=== PATIENT | female | born 1955 | race Caucasian/White ===

== ENCOUNTER → 2020-07-29 | Outpatient (CLI) | payer MEDICARE | LOC: MAMO 06-25 14:30 → MRI 09:43 → MAMO 11:30 | DX: M51.36 Other intervertebral disc degeneration, lumbar region (principal); M51.27 Other intervertebral disc displacement, lumbosacral region; M48.07 Spinal stenosis, lumbosacral region; M51.26 Other intervertebral disc displacement, lumbar region; M48.061 Spinal stenosis, lumbar region without neurogenic claudication; D18.09 Hemangioma of other sites; M43.16 Spondylolisthesis, lumbar region | CPT/HCPCS: 72148 ==

== ENCOUNTER → 2020-09-21 | Outpatient (CLI) | payer MEDICARE | LOC: MAMO 07-29 11:30 | DX: Z12.31 Encounter for screening mammogram for malignant neoplasm of breast (principal) | CPT/HCPCS: 77063; 77067 ==

== ENCOUNTER → 2020-11-26 | Outpatient (CLI) | payer MEDICARE ==
[~2020-11-26] MED LIST: KLOR-CON M1010 MEQ PO
[2020-11-26 15:14] LABS: RED BLOOD COUNT 4.01 M/UL (4.00-5.10); WHITE BLOOD COUNT 5.8 K/UL (4.5-11.0)
== END ==
LOC: LAB 13:00
PROVIDERS: Surgery
DX: D17.1 Benign lipomatous neoplasm of skin and subcutaneous tissue of trunk (principal)
CPT/HCPCS: 36415; 71046; 80048; 85025; 93005

== ENCOUNTER → 2020-12-10 | Outpatient (CLI) | payer MEDICARE, BC | LOC: US 15:30 | DX: M79.89 Other specified soft tissue disorders (principal); M71.21 Synovial cyst of popliteal space [Baker], right knee | CPT/HCPCS: 93971 ==

== ENCOUNTER 2021-01-15 12:11 | Emergency (ER) | payer MEDICARE, BC ==
[2021-01-15 13:21] LABS: HEMOGLOBIN 11.1 gm/dl (12.3-15.3); RED BLOOD COUNT 4.28 M/UL (4.00-5.10); WHITE BLOOD COUNT 7.7 K/UL (4.5-11.0)
[2021-01-15] MEDS ORDERED: KLOR-CON M1010 MEQ PO (15:30)
== END 2021-01-15 16:30 | disposition home or self-care (01) ==
LOC: ER1 12:11
PROVIDERS: Physician Assistant Medical
DX: R07.9 Chest pain, unspecified (principal); Z88.2 Allergy status to sulfonamides
CPT/HCPCS: 71045; 80053; 82550; 82553; 83735; 83874; 83880; 84484; 85025; 93005; 96374; 96375; 99285; J3475; J3480